=== PATIENT | female | born 1995 | race Hispanic/Latino ===

== ENCOUNTER 2025-02-24 19:25 | Emergency (ER) | payer OTHER | END 2025-02-24 21:54 | disposition home or self-care (01) | LOC: CSHERS 19:25 | DX: O9A.211 Injury, poisoning and certain other consequences of external causes complicating pregnancy, first trimester (principal); S39.012A Strain of muscle, fascia and tendon of lower back, initial encounter; Z3A.09 9 weeks gestation of pregnancy; V47.5XXA Car driver injured in collision with fixed or stationary object in traffic accident, initial encounter | CPT/HCPCS: 99283 ==